=== PATIENT | male | born 1960 | race Caucasian/White ===

== ENCOUNTER 2017-09-16 08:45 | Day surgery (SDC) | payer BC ==
--- NOTE | 2017-09-12 09:56 | Pre-Procedure Note/Attestation ---
Pre-Procedure Note/Attestation Complete Prior to Procedure Planned Procedure: right Procedure Narrative: 1. CATARACT EXTRACTION WITH PHACO AND PC IOL IMPLANTATION, RIGHT EYE. Indications for Procedure Pre-Operative Diagnosis: 1. CATARACT , RIGHT EYE Attestation I attest that I discussed the nature of the procedure; its benefits; risks and complications; and alternatives (and the risks and benefits of such alternatives ), prior to the procedure, with the patient (or the patient's legal account retention representative). I attest that, if there was a reasonable possibility of needing a blood transfusion, the patient (or the patient's legal account retention representative) was given the [place] Department of Health Services standardized written summary, pursuant to the Daquan Baroda Blood Safety Act ([place] Health and Safety Code # 1645, as amended). I attest that I re-evaluated the patient just prior to the surgery and that there has been no change in the patient's H&P, except as documented below: BOSTON CARDOZA Sep 12, 2017 09:56
[~2017-09-16] VITALS: Ht 172.7 cm; Wt 79.4 kg
[~2017-09-16 08:45] MED LIST: BSS 15ml BTL ONE; BSS 500ml btl ONE; Carbachol 0.01% Op Soln 1.5ml vial ONE; Dexamethasone 4mg/ml vial ONE; EPINEPHrine 1mg/1ml Amp ONE; Povidone-Iodine 5% opth solution ONE; Sodium Hyaluronate 10 mg/ml 0.85ml ONE; acetaZOLAMIDE 125mg tab ORAL ONE
[2017-09-16] MEDS ORDERED: fentaNYL 100 mcg/2 mL IV ONE (08:46)
[2017-09-16] MEDS ORDERED: NS Irrig 1000ml ONE (08:46)
[2017-09-16] MEDS ORDERED: Propofol 200mg/20ml IV ONE (08:46)
[2017-09-16] MEDS ORDERED: Midazolam 2mg/2ml Inj ONE (08:46)
[2017-09-16] MEDS ORDERED: Sterile Water Irrig 1000ml IRRIG ONE (08:46)
[2017-09-16] MEDS ORDERED: LR 1000ml ONE (08:46)
[2017-09-16] MEDS ORDERED: Phenylephrine 10% Opth Soln 5ml ONE (09:07)
[2017-09-16] MEDS ORDERED: Vigamox Opth Soln 3ml ONE (09:07)
[2017-09-16] MEDS ORDERED: Akten 3.5% 1ml Btl ONE (09:08)
[2017-09-16] MEDS ORDERED: Ketorolac Tromethamine Opth 5ml Soln ONE (09:08)
[2017-09-16] MEDS ORDERED: Tropicamide 1% Opth 15ml Soln ONE (09:08)
[2017-09-16] MEDS ORDERED: LISINOPRIL40 MG ORAL (09:36)
[2017-09-16] MEDS ORDERED: TRIAMTERENE-HC1 EAC7 ORAL (09:36)
[2017-09-16] MEDS: Tropicamide 1% Opth 15ml Soln RIGHT EYE SCH ×3 (09:38→09:50)
[2017-09-16] MEDS: Akten 3.5% 1ml Btl RIGHT EYE SCH ×3 (09:38→09:50)
[2017-09-16] MEDS: Ketorolac Tromethamine Opth 5ml Soln RIGHT EYE SCH ×3 (09:38→09:50)
[2017-09-16] MEDS: Vigamox Opth Soln 3ml RIGHT EYE SCH ×3 (09:39→09:50)
[2017-09-16] MEDS: Phenylephrine 10% Opth Soln 5ml RIGHT EYE SCH ×3 (09:39→09:50)
[2017-09-16 09:42] VITALS: BP 129/75
[2017-09-16] MEDS ORDERED: TIVICAY50 MG ORAL (09:49)
[2017-09-16] MEDS ORDERED: PREZCOBIX 8001 EACH PO (09:57)
[2017-09-16] MEDS ORDERED: VALACYCLOVIR1000 MG ORAL (09:57)
[2017-09-16] MEDS ORDERED: VITAMIN D1000 UNI2 PO (09:57)
[2017-09-16] MEDS ORDERED: CRESTOR10 M2 ORAL (09:57)
[2017-09-16] MEDS ORDERED: FISH OIL CAP1000 MG ORAL (09:57)
[2017-09-16] MEDS ORDERED: FINASTERIDE5 MG ORAL (09:57)
[2017-09-16] MEDS ORDERED: POTASSIUM CHLO20 ME3 PO (09:57)
[2017-09-16] MEDS ORDERED: EDURANT25 MG PO (09:57)
[2017-09-16] MEDS ORDERED: Lidocaine 1% MPF 10mg/ml 5ml ONE (10:35)
[2017-09-16] MEDS ORDERED: LR 1000ml 1,000 ML IVLG SCH (11:05)
--- NOTE | 2017-09-16 11:05 | Anethesia Preoperative Eval ---
Anesthesia Pre-op PMH/ROS General Date of Evaluation: Sep 16, 2017 Time of Evaluation: 10:40 Anesthesiologist: Marielle ASA Score: ASA 3 Mallampati Score Class I : Soft palate, uvula, fauces, pillars visible Class II: Soft palate, uvula, fauces visible Class III: Soft palate, base of uvula visible Class IV: Only hard plate visible Mallampati Classification: Class II Surgeon: Paulette Diagnosis: R eye cataract Surgical Procedure: R eye cataract extraction with IOL Anesthesia History: none Family History: no anesthesia problems Allergies: Coded Allergies: No Known Allergies (Unverified , 09/16/17) Medications: see eMAR Past Medical History Cardiovascular: Reports: HTN - stable, Denies: CAD, LA, valve dz, arrhythmia, other Pulmonary: Denies: asthma, COPD, FOSTER, other Gastrointestinal/Genitourinary: Reports: GERD - mild, Denies: CRI, ESRD, other Neurologic/Psychiatric: Denies: dementia, CVA, depression/anxiety, TIA, other Endocrine: Reports: DM - borderline HEENT: Reports: cataract (L), cataract (R), Denies: glaucoma, [place] (L), [place] (R), other Hematology/Immune: Reports: other - HIV stable on antivirals, Denies: anemia, DVT, bleeding disorder Musculoskeletal/Integumentary: Denies: OA, RA, DJD, DDD, edema, other Other: other - overweight PMH Narrative: as above PSxH Narrative: Dental Sx Anesthesia Pre-op Phys. Exam Physician Exam Last Vital Signs Date Time Temp Pulse Resp B/P (MAP) Pulse Ox O2 Delivery O2 Flow Rate FiO2 09/16/17 09:42 98.2 60 18 129/75 96 Room Air Constitutional: NAD Neurologic: CN 2-12 intact Cardiovascular: RRR, no M/R/G Respiratory: CTA Gastrointestinal: S/NT/ND Airway Exam Mallampati Score: Class II MO: full Neck: short ROM: full Teeth: intact Dentures: no upper, no lower Anesthesia Pre-op A/P Labs see chart Studies Pre-op Studies: EKG - NSR Risk Assessment & Plan Assessment: ASA 3 Plan: MAC Status Change Before Surgery: No Pre-Antibiotics Drug: none POONAM SAENZ M.D. Sep 16, 2017 11:05
[2017-09-16] MEDS ORDERED: DiphenhydrAMINE 50mg/ml Inj IVP PRN (11:15)
[2017-09-16] MEDS ORDERED: fentaNYL 100 mcg/2 mL IV PRN (11:15)
[2017-09-16 11:22] VITALS: BP 121/86
--- NOTE | 2017-09-16 11:25 | Discharge Summary ---
Discharge Summary Discharge Summary Discharge Summary DATE OF ADMISSION: 09/16/2017 DATE OF DISCHARGE: 09/16/2017 REASON FOR HOSPITALIZATION: Cataract, right eye SURGERY PERFORMED: Cataract extraction with phaco and PC IOL implantation, right eye CONDITION IN THE HOSPITAL:The patient tolerated the surgery without complications. DISCHARGE CONDITION: The patient was stable at discharge. DISCHARGE MEDICATIONS: 1. Vigamox eye drops one drop q.i.d, OD 2. Prednisolone one drop q.i.d, OD 3. Acular one drop qid, OD POSTOPERATIVE ORDERS: The patient has to rest at home. No bending, No lifting, No watching Television tonight. POSTOPERATIVE FOLLOW UP: The patient will be followed in my office tomorrow morning at 7 o'clock. BOSTON CARDOZA Sep 16, 2017 11:25
[2017-09-16] MEDS ORDERED: Sodium Hyaluronate 10 mg/ml 0.85ml ONE (11:26)
--- NOTE | 2017-09-16 11:29 | Brief Operative Note ---
Immediate Post Operative Note Operative Note Chief Complaint: Blurry vision, difficulty driving and reading, right eye Pre-op Diagnosis: 1. CATARACT , RIGHT EYE Procedure: 1- Cataract extraction with phaco and PC IOL implantation. right eye 2- Vision blue used for staining the anterior capsule Post-op Diagnosis: same as pre-op Surgeon: Boston Caldwell MD. Avionics Systems Integration Specialist: None Additional Surgeons: None Anesthesiologist: Dr. becerra Anesthesia: MAC Specimen: none Complications: none Condition: stable Fluids: 500ml Estimated Blood Loss: none Drains: none Packing: Implant(s) used?: Yes - Monofocal PC IOL implanted in the right eye without complication BOSTON CALDWELL Sep 16, 2017 11:29
[2017-09-16 11:30] VITALS: BP 124/81
--- NOTE | 2017-09-16 11:30 | Immediate Post-Op Evaluation ---
Immediate Post-Op Evalulation Immediate Post-Op Evalulation Procedure: R eye cataract extraction with IOL Date of Evaluation: Sep 16, 2017 Time of Evaluation: 11:29 IV Fluids: 400 Blood Products: none Estimated Blood Loss: none Urinary Output: none Blood Pressure Systolic: 125 Blood Pressure Diastolic: 83 Pulse Rate: 59 Respiratory Rate: 20 O2 Sat by Pulse Oximetry: 99 Temperature (Fahrenheit): 97.6 Pain Score (1-10): 1 Nausea: No Vomiting: No Complications none Patient Status: awake, patent, none Hydration Status: adequate POONAM SAENZ M.D. Sep 16, 2017 11:30
[2017-09-16 11:35] VITALS: BP 125/83
[2017-09-16 11:50] VITALS: BP_SYST 123; BP_SYST 128; BP_DIAS 81; BP_DIAS 83
[2017-09-16 12:20] VITALS: BP 121/81
[2017-09-17 08:29] VITALS: BP 124/74
--- NOTE | 2017-09-17 08:29 | 48 Hour Post Anesthesia Eval ---
Post Anesthesia Evaluation Procedure: R eye cataract extraction with IOL Date of Evaluation: Sep 16, 2017 Time of Evaluation: 12:02 Blood Pressure Systolic: 124 0: 74 Pulse Rate: 68 Respiratory Rate: 20 Temperature (Fahrenheit): 97.6 O2 Sat by Pulse Oximetry: 98 Airway: patent Nausea: No Vomiting: No Pain Intensity: 1 Hydration Status: adequate Cardiopulmonary Status: stable Mental Status/LOC: patient returned to baseline Follow-up Care/Observations: n/a Post-Anesthesia Complications: none Follow-up care needed: ready to discharge POONAM SAENZ M.D. Sep 17, 2017 08:29
--- NOTE | 2017-09-17 09:42 | Operative Note - Dictated ---
DATE OF OPERATION: 09/16/2017 FACILITY: [facility]. SURGEON: Valdez Caldwell M.D. FIRE CREW WORKER: None. ANESTHESIOLOGIST: Prateek Palomares M.D. ANESTHESIA: Monitored anesthesia care (MAC). PREOPERATIVE DIAGNOSES: 1. Cataract, right eye. 2. Floppy iris syndrome. POSTOPERATIVE DIAGNOSES: 1. Cataract, right eye. 2. Floppy iris syndrome. 3. Complex cataract. SURGERY PERFORMED: Cataract extraction with phacoemulsification and posterior chamber intraocular lens implantation, right eye. INDICATIONS FOR SURGERY: The patient is a 57-year-old gentleman with history of HIV positive, hypertension, hyperlipidemia, and benign prostatic hypertrophy. He is taking medications including lisinopril, atenolol, Edurant, Valtrex, vitamin D, vitamin K, potassium, aspirin, and Crestor. He is not a smoker and he is not allergic to any medications. 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 He is complaining of blurred vision in the right eye. On examination of the right eye, cornea has keratoconus and paracentral scar. Anterior chamber is deep. Pupillary reflex is normal. There is no RAPD. There is 3+ nuclear sclerosis and 2+ cortical cataract in this eye. Funduscopy shows normal macula, normal optic disc, and periphery retina is flat. To improve his vision in the right eye, the cataract has to be removed and posterior chamber intraocular lens has to be implanted. INFORMED CONSENT: The nature of the surgery, risks, benefits, alternatives, and potential complications were explained in detail to the patient. The potential complications including, but not limited to bleeding, infection, posterior capsular rupture, lens subluxation, flat anterior chamber, iris prolapse, uveitis, wound leakage, corneal edema, macular edema, endophthalmitis, retinal detachment, loss of vision, and even loss of the eye were all explained in detail to the patient. The alternatives including accommodating lenses, multifocal lens, toric lens, and conventional cataract surgery with limbal relaxing incision (LRI) for treatment of astigmatism, all were explained in detail to the patient, who voiced understanding. The patient elected to have conventional cataract surgery in this eye. Then, he signed the consent form, which is in the chart. DESCRIPTION OF SURGERY AND FINDINGS: Following that, the patient was taken to the operation room in a stable condition. Lidocaine gel Akten 3.5% were applied to the conjunctiva of the right eye. IV sedation was given by the anesthesiologist, Dr. Palomares. After adequate anesthesia and sedation had been achieved, the right eye was prepped and draped in a sterile fashion for intraocular surgery. Following that, using a Super Sharp knife, a clear corneal side port was created. A 1% lidocaine without preservative (MPF) was injected into the anterior chamber. Viscoelastic agent Healon was injected into the anterior chamber. Following that, using a 2.8 mm keratome, temporal clear corneal keratotomy was performed. Viscoelastic agent was injected into the anterior chamber again. Following that, anterior capsulotomy was performed in the fashion of capsulorrhexis beautifully. Following that, whole viscoelastic agent was removed from the anterior chamber. Following that, using balanced salt solution, hydrodissection and hydrodelineation was performed and the nucleus was freed. Following that, clear viscoelastic agent Healon was injected into the anterior chamber to protect the endothelium of the cornea. Following that, using phacoemulsification machine in the fashion of horizontal chop, the nucleus was removed in toto. Following that, using the irrigation aspiration unit, the cortical material was removed from the capsular bag and the capsular bag was polished. Following that, the capsular bag was filled with viscoelastic agent Healon. Following that, a +5.0 diopter ZCB00 foldable PCIOL with serial number [id number] was injected into the capsular bag. Using a Sinskey hook, the lens was manipulated and put in the proper position. Following that, the viscoelastic agent was removed from the anterior posterior part of the lens. The anterior chamber was filled with balanced salt solution and the wound was hydrated with balanced salt solution. The patient tolerated the surgery without complications. At the end of the surgery, the eye was patched with a clear sterile fenestrated shield. Following that, the patient was transferred to the recovery room. In the recovery room, 125 mg Diamox was given by mouth stat. Postoperative orders and directions were given to the patient. The patient will be discharged home upon stabilization. The patient will be followed in my office tomorrow morning at 10 o'clock. Valdez Caldwell M.D. DR: DARY JOB#: [id number] CC:
== END 2017-09-16 12:40 | disposition home or self-care (01) ==
LOC: SUR 08:45
DX: H25.11 Age-related nuclear cataract, right eye (principal); H25.012 Cortical age-related cataract, left eye; I10 Essential (primary) hypertension; E78.5 Hyperlipidemia, unspecified; Z79.82 Long term (current) use of aspirin; H21.81 Floppy iris syndrome; B20 Human immunodeficiency virus [HIV] disease; K21.9 Gastro-esophageal reflux disease without esophagitis
CPT/HCPCS: 66984; 82962; J0171; J1100; J2250; J2704; J3010; J7120; V2632; 94003; 94150

== ENCOUNTER 2017-09-30 08:39 | Day surgery (SDC) | payer BC ==
--- NOTE | 2017-09-26 15:01 | Pre-Procedure Note/Attestation ---
Pre-Procedure Note/Attestation Complete Prior to Procedure Planned Procedure: left Procedure Narrative: 1. CATARACT EXTRACTION WITH PHACO AND PC IOL IMPLANTATION, LEFT EYE. Indications for Procedure Pre-Operative Diagnosis: 1. CATARACT , LEFT EYE Attestation I attest that I discussed the nature of the procedure; its benefits; risks and complications; and alternatives (and the risks and benefits of such alternatives ), prior to the procedure, with the patient (or the patient's legal business process representative). I attest that, if there was a reasonable possibility of needing a blood transfusion, the patient (or the patient's legal business process representative) was given the [place] Department of Health Services standardized written summary, pursuant to the Daquan Aniyah Blood Safety Act ([place] Health and Safety Code # 1645, as amended). I attest that I re-evaluated the patient just prior to the surgery and that there has been no change in the patient's H&P, except as documented below: BOSTON CARDOZA Sep 26, 2017 15:01
[2017-09-30] VITALS (10 sets, daily range): BP systolic 111–130; BP diastolic 72–83
[~2017-09-30] VITALS: Ht 172.7 cm; Wt 82.6 kg
--- NOTE | 2017-09-30 06:56 | Anethesia Preoperative Eval ---
Anesthesia Pre-op PMH/ROS General Date of Evaluation: Sep 30, 2017 Time of Evaluation: 07:55 Anesthesiologist: usama ASA Score: ASA 3 Mallampati Score Class I : Soft palate, uvula, fauces, pillars visible Class II: Soft palate, uvula, fauces visible Class III: Soft palate, base of uvula visible Class IV: Only hard plate visible Mallampati Classification: Class II Surgeon: fidel Diagnosis: cataract left eye Surgical Procedure: cataract extraction left eye w/ iol implant Anesthesia History: none Family History: no anesthesia problems Allergies: Coded Allergies: No Known Allergies (Unverified , 09/16/17) Medications: see eMAR Past Medical History Cardiovascular: Reports: HTN Endocrine: Reports: DM Hematology/Immune: Reports: other - HIV Anesthesia Pre-op Phys. Exam Physician Exam Constitutional: NAD Neurologic: CN 2-12 intact Cardiovascular: RRR Respiratory: CTA Gastrointestinal: S/NT/ND Airway Exam Mallampati Score: Class II MO: full Neck: supple TMD: 2fb ROM: full Anesthesia Pre-op A/P Risk Assessment & Plan Assessment: asa3 Plan: mac Status Change Before Surgery: No Pre-Antibiotics Drug: na BENEDICT GATICA Sep 30, 2017 06:56
[~2017-09-30 08:39] MED LIST changes: +CRESTOR10 M2 ORAL; +EDURANT25 MG PO; +FINASTERIDE5 MG ORAL; +FISH OIL CAP1000 MG ORAL; +LISINOPRIL40 MG ORAL; +Lidocaine 1% MPF 10mg/ml 5ml ONE; +POTASSIUM CHLO20 ME3 PO; +PREZCOBIX 8001 EACH PO; +TIVICAY50 MG ORAL; +TRIAMTERENE-HC1 EAC7 ORAL; +Tetracaine 0.5% Opth 4ml Soln ONE; +VALACYCLOVIR1000 MG ORAL; +VITAMIN D1000 UNI2 PO
[2017-09-30] MEDS ORDERED: Ketorolac Tromethamine Opth 5ml Soln ONE (08:57)
[2017-09-30] MEDS ORDERED: Tropicamide 1% Opth 15ml Soln ONE (08:57)
[2017-09-30] MEDS ORDERED: Vigamox Opth Soln 3ml ONE (08:57)
[2017-09-30] MEDS ORDERED: Phenylephrine 10% Opth Soln 5ml ONE (08:57)
[2017-09-30] MEDS ORDERED: Akten 3.5% 1ml Btl ONE (08:57)
[2017-09-30] MEDS: Tropicamide 1% Opth 15ml Soln LEFT EYE SCH ×3 (09:11→09:32)
[2017-09-30] MEDS: Ketorolac Tromethamine Opth 5ml Soln LEFT EYE SCH ×3 (09:11→09:32)
[2017-09-30] MEDS: Phenylephrine 10% Opth Soln 5ml LEFT EYE SCH ×3 (09:12→09:32)
[2017-09-30] MEDS: Akten 3.5% 1ml Btl LEFT EYE SCH ×3 (09:12→09:32)
[2017-09-30] MEDS: Vigamox Opth Soln 3ml LEFT EYE SCH ×3 (09:12→09:32)
[2017-09-30] MEDS ORDERED: LR 1000ml 1,000 ML IVLG SCH (09:25)
[2017-09-30] MEDS ORDERED: Atropine Inj 1mg/10ml Syr IV PRN (09:30)
[2017-09-30] MEDS ORDERED: DiphenhydrAMINE 50mg/ml Inj IVP PRN (09:30)
[2017-09-30] MEDS ORDERED: Midazolam 2mg/2ml Inj IVP PRN (09:30)
[2017-09-30] MEDS ORDERED: fentaNYL 100 mcg/2 mL IV PRN (09:30)
[2017-09-30] MEDS ORDERED: LR 1000ml ONE (10:30)
[2017-09-30] MEDS ORDERED: fentaNYL 100 mcg/2 mL IV ONE (10:30)
[2017-09-30] MEDS ORDERED: Midazolam 2mg/2ml Inj ONE (10:30)
[2017-09-30] MEDS ORDERED: Sterile Water Irrig 1000ml IRRIG ONE (10:45)
[2017-09-30] MEDS ORDERED: NS Irrig 1000ml ONE (10:45)
--- NOTE | 2017-09-30 11:14 | Discharge Summary ---
Discharge Summary Discharge Summary Discharge Summary DATE OF ADMISSION: 09/30/2017 DATE OF DISCHARGE: 09/30/2017 REASON FOR HOSPITALIZATION: cataract, left eye SURGERY PERFORMED: Cataract extraction with phaco and PC IOl implantation, left eye CONDITION IN THE HOSPITAL:The patient tolerated the surgery without complications. DISCHARGE CONDITION: The patient was stable at discharge. DISCHARGE MEDICATIONS: 1. Vigamox eye drops one drop q.i.d, OS 2. Prednisolone one drop q.i.d, OS 3. Acular, one drop q4h, left eye POSTOPERATIVE ORDERS: The patient has to rest at home. No bending, No lifting, No watching Television tonight. POSTOPERATIVE FOLLOW UP: The patient will be followed in my office tomorrow morning at 7 o'clock. BOSTON CARDOZA Sep 30, 2017 11:14
--- NOTE | 2017-09-30 11:17 | Brief Operative Note ---
Immediate Post Operative Note Operative Note Chief Complaint: Blurry vision, difficulty driving and reading, left eye Pre-op Diagnosis: 1. CATARACT , LEFT EYE Procedure: Cataract extraction with phaco and PC IOl implantation, left eye Post-op Diagnosis: same as pre-op Surgeon: Boston Caldwell MD. Office Machines Sales Representative: None Additional Surgeons: None Anesthesiologist: Dr. Reynoso Anesthesia: MAC Specimen: none Complications: none Condition: stable Fluids: 400ml Estimated Blood Loss: none Drains: none Implant(s) used?: Yes - Monofocal PC IOL implanted in the left eye without complication. BOSTON CALDWELL Sep 30, 2017 11:17
--- NOTE | 2017-09-30 14:15 | Immediate Post-Op Evaluation ---
Immediate Post-Op Evalulation Immediate Post-Op Evalulation Procedure: cataract extraction w/ iol left Date of Evaluation: Sep 30, 2017 Time of Evaluation: 11:25 IV Fluids: 400ml 0.9ns Blood Products: none Estimated Blood Loss: negligible Blood Pressure Systolic: 119 Blood Pressure Diastolic: 74 Pulse Rate: 60 Respiratory Rate: 18 O2 Sat by Pulse Oximetry: 100 Temperature (Fahrenheit): 97.1 Pain Score (1-10): 0 Nausea: No Vomiting: No Complications none Patient Status: awake, reacts, patent Hydration Status: adequate Drug: BENEDICT Bianchi Sep 30, 2017 14:15
--- NOTE | 2017-09-30 15:58 | 48 Hour Post Anesthesia Eval ---
Post Anesthesia Evaluation Procedure: cataract extraction w/ iol left Date of Evaluation: Sep 30, 2017 Time of Evaluation: 11:27 Blood Pressure Systolic: 119 0: 74 Pulse Rate: 60 Respiratory Rate: 18 Temperature (Fahrenheit): 97.1 O2 Sat by Pulse Oximetry: 100 Airway: patent Nausea: No Vomiting: No Pain Intensity: 0 Hydration Status: adequate Cardiopulmonary Status: stable Mental Status/LOC: patient returned to baseline Post-Anesthesia Complications: none Follow-up care needed: N/A BENEDICT GATICA Sep 30, 2017 15:58
--- NOTE | 2017-10-01 | Operative Note - Dictated ---
DATE OF OPERATION: 09/30/2017 FACILITY: [facility]. SURGEON: Valdez Caldwell M.D. SLICER MACHINE OPERATOR: None. ANESTHESIOLOGIST: Anh Capellan M.D. ANESTHESIA: Monitored anesthesia care (MAC). PREOPERATIVE DIAGNOSES: 1. Cataract, left eye. 2. Floppy iris syndrome. POSTOPERATIVE DIAGNOSES: 1. Cataract, left eye. 2. Floppy iris syndrome. 3. Complex cataract. SURGERY PERFORMED: Cataract extraction with phacoemulsification and posterior chamber intraocular lens implantation in the left eye. INDICATION FOR SURGERY: The patient is a 57-year-old gentleman with history of HIV positive, hypertension, hyperlipidemia, and benign prostatic hypertrophy. He is taking medications including lisinopril, atenolol, Edurant, Valtrex, vitamin D, vitamin K, potassium, aspirin, and Crestor. He is not a smoker and he is not allergic to any medications. 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 He has had cataract surgery in the right eye two weeks ago and he is happy with the result. Now, he is complaining of blurred vision in the left eye. On examination of the left cornea, has keratoconus and paracentral scar. Anterior chamber is deep. Pupillary reflex is normal. There is no RAPD. There is 3+ nuclear sclerosis and 2+ cortical cataract in the left eye. Funduscopy shows normal macula, normal optic disc, and periphery retina is flat. To improve his vision in the left eye, the cataract has to be removed and posterior chamber intraocular lens has to be implanted. INFORMED CONSENT: The nature of the surgery, risks, benefits, alternatives, and potential complications were all explained in detail to the patient. The potential complications including, but not limited to bleeding, infection, posterior capsular rupture, lens subluxation, flat anterior chamber, iris prolapse, uveitis, wound leakage, corneal edema, macular edema, endophthalmitis, retinal detachment, loss of vision, and even loss of the eye were all explained in detail to the patient. The alternatives including accommodating lenses, multifocal lens, toric lens, and conventional cataract surgery with limbal relaxing incision (LRI) for treatment of astigmatism, all were explained in detail to the patient, who voiced understanding. The patient elected to have conventional cataract surgery in this eye. Then, he signed the consent form, which is in the chart. DESCRIPTION OF SURGERY AND FINDINGS: Following that, the patient was taken to the operation room in a stable condition. Lidocaine gel Akten 3.5% were applied to the conjunctiva of the left eye. IV sedation was given by the anesthesiologist, Dr. Capellan. After adequate anesthesia and sedation had been achieved, the left eye was prepped and draped in a sterile fashion for intraocular surgery. Following that, using a Super Sharp knife, a clear corneal side port was created. A 1% lidocaine without preservative (MPF) was injected into the anterior chamber. Viscoelastic agent Healon was injected into the anterior chamber. Following that, using a 2.8 mm keratome, temporal clear corneal keratotomy was performed. Viscoelastic agent was injected into the anterior chamber again. Following that, Vision Blue was injected on top of the anterior capsule to stain the anterior capsule of the lens. Following that, a clear and fresh viscoelastic agent Healon was injected into the anterior capsule. Following that, an anterior capsulotomy in the fashion of capsulorrhexis was performed under the viscoelastic agent beautifully. Following that, whole viscoelastic agent was removed from the anterior chamber. Following that, using balanced salt solution, hydrodissection and hydrodelineation was performed and the nucleus was freed. Following that, clear viscoelastic agent Healon was injected into the anterior chamber to protect the endothelium of the cornea. Following that, using phacoemulsification machine in the fashion of horizontal chop, the nucleus was removed in toto. Following that, using irrigation and aspiration unit, the cortical material was removed from the capsular bag and the capsular bag was polished. Following that, the capsular bag was filled with viscoelastic agent, Healon. Following that, a +9 diopters foldable PC IOL with serial number [id number] was injected into the capsular bag. Using a Sinskey hook, the lens was manipulated and put in the proper position. Following that, the viscoelastic agent was removed from the anterior and posterior part of the lens. The anterior chamber was filled with balanced salt solution and the wound was hydrated with balanced salt solution. Following that, the wound was checked for leakage. There was no leakage. Vigamox eye drops were applied to the conjunctiva of the left eye. The patient tolerated the surgery without complications. At the end of the surgery, the eye was patched with a clear sterile fenestrated shield. Following that, the patient was transferred to the recovery room. In the recovery room, 125 mg Diamox was given by mouth stat. Postoperative orders and directions were given to the patient. The patient will be discharged home upon stabilization. The patient will be followed in my office tomorrow morning at 10 o'clock. Valdez Caldwell M.D. DR: Nickie JOB#: [id number] CC:
== END 2017-09-30 12:40 | disposition home or self-care (01) ==
LOC: SUR 08:39
DX: H25.12 Age-related nuclear cataract, left eye (principal); H25.012 Cortical age-related cataract, left eye; H21.81 Floppy iris syndrome; I10 Essential (primary) hypertension; E78.5 Hyperlipidemia, unspecified; B20 Human immunodeficiency virus [HIV] disease; F41.9 Anxiety disorder, unspecified; M50.30 Other cervical disc degeneration, unspecified cervical region; E11.9 Type 2 diabetes mellitus without complications; Z79.82 Long term (current) use of aspirin; Z86.010 Personal history of colon polyps
CPT/HCPCS: 66984; J0171; J1100; J2250; J3010; J7120; V2632; 94003; 94150